=== PATIENT | female | born 1960 | race Caucasian/White ===

== ENCOUNTER 2019-07-30 09:34 | Observation (INO) ==
[~2019-07-30 09:34] MED LIST: Bacitracin 50,000 UNIT, Polymyxin B Sulfate 500,000 UNIT, Sodium Chloride IRRigation 1,... IR ONE
[2019-07-30] MEDS ORDERED: Albuterol 2.5 MG/3 ML NEBULIZER IH PRN ×3 (09:54→14:33)
[2019-07-30] MEDS ORDERED: CeFAZolin Syr 2,000MG/20 ML 2,000 MG/20 ML SYRINGE IVPB ONE (09:54)
[2019-07-30] MEDS ORDERED: Ringers Solution, Lactated 1,000 ML IVC SCH ×2 (10:00→14:33)
[2019-07-30] MEDS ORDERED: *HR* Rocuronium Bromide 50 MG/5 ML VIAL ONE (10:29)
[2019-07-30] MEDS ORDERED: Ondansetron 4 MG/2 ML VIAL ONE (10:29)
[2019-07-30] MEDS ORDERED: Lidocaine -MPF 2% 2 ML VIAL ONE (10:29)
[2019-07-30] MEDS ORDERED: *HR* Midazolam HCl 2 MG/2 ML VIAL ONE (10:29)
[2019-07-30] MEDS ORDERED: Dexamethasone 4 MG/ML VIAL ONE (10:29)
[2019-07-30] MEDS ORDERED: *HR* Succinylcholine 200 MG/10 ML VIAL IVP ONE (10:29)
[2019-07-30] MEDS ORDERED: *HR* FentaNYL (PF) 100 MCG/2 ML VIAL ONE (10:30)
[2019-07-30] MEDS ORDERED: Lidocaine HCL 4 ML Topical Solution (Laryng-O-Jet Kit Sterile Pak) TP ONE (10:30)
[2019-07-30] MEDS ORDERED: *HR* Propofol 200 MG/20 ML VIAL IVP ONE (10:30)
[2019-07-30] MEDS ORDERED: *HR* Promethazine 25 MG/ML VIAL IVP PRN (10:31)
[2019-07-30] MEDS ORDERED: Acetaminophen IV 1,000 MG/100 ML INFUS..BTL IVPB ONE (10:31)
[2019-07-30] MEDS ORDERED: Famotidine 20 MG/2 ML VIAL IVP ONE (10:31)
[2019-07-30] MEDS ORDERED: *HR* OxyCODONE Immed Rel 5 MG TABLET PO PRN (10:31)
[2019-07-30] MEDS ORDERED: *HR* HYDROmorphone (PF) 1 MG/ML SYRINGE IVP PRN (10:31)
[2019-07-30] MEDS ORDERED: *HR* Labetalol 20 MG/4 ML SYRINGE IVP PRN (10:31)
[2019-07-30] MEDS ORDERED: Gabapentin 300 MG CAPSULE PO ONE (10:31)
[2019-07-30] MEDS ORDERED: Ondansetron 4 MG/2 ML VIAL IVP ONE (10:31)
[2019-07-30] MEDS ORDERED: Lidocaine -MPF 1% 5 ML AMPUL ONE (11:46)
[2019-07-30] MEDS ORDERED: *HR* HYDROMORPHONE 2 MG/ML VIAL ONE (12:33)
[2019-07-30] MEDS ORDERED: Lidocaine -MPF 4% 5 ML AMPUL ONE (12:51)
[2019-07-30] MEDS ORDERED: EPHEDrine 50 MG/ML VIAL ONE (13:06)
[2019-07-30] MEDS ORDERED: *HR* PHENYLEPHRINE 1,000 MCG/10 ML SYRINGE IVP ONE (13:11)
[2019-07-30] MEDS ORDERED: PATADAY EYE DROPS OP PRN (14:33)
[2019-07-30] MEDS ORDERED: Naloxone 0.4 MG/ML INJ IVP PRN (14:33)
[2019-07-30] MEDS ORDERED: Ondansetron 4 MG/2 ML VIAL IVP PRN (14:33)
[2019-07-30] MEDS ORDERED: *HR* HYDROcodone/Acet 5/325 mg TABLET PO PRN (14:33)
[2019-07-30] MEDS ORDERED: MAXALT 10 MG PO PRN (14:33)
[2019-07-30] MEDS: *HR* OxyCODONE Immed Rel 5 MG TABLET PO PRN ×2 (15:48→23:58)
[2019-07-30] MEDS: CYCLOSPORINE OP SCH (17:57)
[2019-07-30] MEDS: Topiramate 25 MG TABLET PO SCH (20:22)
[2019-07-30] MEDS: Loratadine 10 MG TABLET PO SCH (20:22)
[2019-07-30] MEDS: Artificial Tears SOLN 15 ML BOTTLE BOTH EYES SCH (20:23)
[2019-07-30] MEDS: ceFAZolin 2,000 MG in 0.9 % Sodium Chloride 100 ML IVPB SCH (20:27)
[2019-07-31] MEDS: tiZANidine 4 MG TABLET PO PRN ×2 (00:46→21:25)
[2019-07-31] MEDS: CYCLOSPORINE OP SCH ×2 (04:28→18:00)
[2019-07-31] MEDS: ceFAZolin 2,000 MG in 0.9 % Sodium Chloride 100 ML IVPB SCH (05:21)
[2019-07-31] MEDS: Budesonide/Formoterol 160/4.5 1 PUFF INH IH SCH ×3 (08:01→20:03)
[2019-07-31] MEDS: Tiotropium 18 MCG inhalation IH SCH ×2 (08:02→08:07)
[2019-07-31] MEDS: Celecoxib 200 MG CAPSULE PO SCH (10:03)
[2019-07-31] MEDS: Aspirin Enteric Coated 81 MG Tablet PO SCH (10:03)
[2019-07-31] MEDS: Pyridoxine (B-6) 50 MG TABLET PO SCH (10:04)
[2019-07-31] MEDS: Vitamin E 200 UNIT (90MG) CAPSULE PO SCH (10:04)
[2019-07-31 13:17] LABS: Basophils % 0.1 %; Eosinophils % 0.1 %; Hematocrit 34.6 % (35.3-44.9); Immature Granulocytes % 0.7 % (0-4); Lymphocytes # 2.7 K/mcL (0.6-4.6); Lymphocytes % 18.4 %; Mean Corpuscular HGB Conc 32.7 g/dL (31.6-35.5); Mean Corpuscular Hemoglobin 33.2 pg (28.0-33.3); Mean Corpuscular Volume 101.8 fL (83.0-100.0); Mean Platelet Volume 9.9 fL (9.4-12.4); Monocytes # 1.3 K/mcL (0.0-1.3); Monocytes % 8.4 %; Neutrophils # 10.8 K/mcL (1.6-8.9); Platelet Count 241 K/mcL (140-400); Red Cell Distribution Width 13.9 % (11.5-14.5); Segmented Neutrophils % 72.3 %
[2019-07-31 13:19] LABS: Hemoglobin 11.3 g/dL (11.5-15.4); White Blood Count 14.9 K/mcL (4.3-11.1)
[2019-07-31 13:47] LABS: Alanine Aminotransferase 15 Units/L (7-52); Albumin 3.3 g/dL (3.5-5.7); Albumin/Globulin Ratio 1.3 (1.1-2.2); Alkaline Phosphatase 59 Units/L (34-104); Aspartate Amino Transferase 20 Units/L (13-39); BUN/Creatinine Ratio 18 (6-26); Bilirubin,Total 0.2 mg/dL (0.3-1.0); Blood Urea Nitrogen 18 mg/dL (8-23); Calcium 8.6 mg/dL (8.6-10.3); Carbon Dioxide 24 mEq/L (23-29); Chloride 108 mEq/L (98-107); Globulin 2.5 g/dL (2.4-3.5); Glucose 98 mg/dL (70-105); Osmolality,Calculated 294 (280-300); Potassium 4.1 mEq/L (3.5-5.1); Sodium 141 mEq/L (136-145); Total Protein 5.8 g/dL (6.4-8.9); eGFR For African Americans > 60 (> 60); eGFR For Non-African Americans 56 (> 60)
[2019-07-31] MEDS ORDERED: *HR* OxyCODONE Immed Rel 5 MG TABLET PO PRN ×2 (15:07→15:08)
[2019-07-31] MEDS: Artificial Tears SOLN 15 ML BOTTLE BOTH EYES SCH ×2 (16:34→20:46)
[2019-07-31] MEDS ORDERED: Famotidine 20 MG TABLET PO PRN (16:36)
[2019-07-31] MEDS: Loratadine 10 MG TABLET PO SCH (20:46)
[2019-07-31] MEDS: Topiramate 25 MG TABLET PO SCH (20:46)
[2019-08-01] MEDS: CYCLOSPORINE OP SCH (02:17)
[2019-08-01] MEDS: Budesonide/Formoterol 160/4.5 1 PUFF INH IH SCH (08:11)
[2019-08-01] MEDS: Tiotropium 18 MCG inhalation IH SCH (08:11)
[2019-08-01] MEDS: Vitamin E 200 UNIT (90MG) CAPSULE PO SCH (08:31)
[2019-08-01] MEDS: Pyridoxine (B-6) 50 MG TABLET PO SCH (08:31)
[2019-08-01] MEDS: Aspirin Enteric Coated 81 MG Tablet PO SCH (08:31)
[2019-08-01] MEDS: Acetaminophen 325 MG TABLET PO PRN ×2 (08:32→16:27)
[2019-08-01] MEDS: Artificial Tears SOLN 15 ML BOTTLE BOTH EYES SCH (08:32)
[2019-08-01] MEDS: Celecoxib 200 MG CAPSULE PO SCH (08:32)
[2019-08-01 12:44] VITALS: BP 124/63
[2019-08-01] MEDS ORDERED: FLU Vac QV 19-20 (6Month+)/PF 0.5 ML SYRINGE IM ONE (14:39)
== END 2019-08-01 16:41 ==
LOC: 3NENU 09:34 → SAMDAY 09:34 → 3NENU 14:21 → SAMDAY 07-31 14:35 → 3NENU 07-31 14:49
PROVIDERS: ADMIT Orthopaedic Surgery Orthopaedic Surgery of the Spine; ATTEND Orthopaedic Surgery Orthopaedic Surgery of the Spine